=== PATIENT | female | born 2000 | race Two or more races ===

== ENCOUNTER 2024-06-05 09:00 | Outpatient (CLI) | payer OTHER | END 2024-06-05 10:00 | disposition home or self-care (01) | LOC: PPH VACUNA 09:00 | PROVIDERS: ATTEND Emergency Medicine Pediatric Emergency Medicine | DX: Z23 Encounter for immunization (principal) ==

== ENCOUNTER 2024-11-05 15:13 | Emergency (ER) | payer OTHER ==
[~2024-11-05] VITALS: Ht 162.6 cm; Wt 94.3 kg
[2024-11-05] MEDS ORDERED: VITATRUE COMBO1 EACH PO (15:23)
[2024-11-05] MEDS ORDERED: ACETAMINOPHEN500 M1 PO (17:39)
== END 2024-11-05 17:54 | disposition home or self-care (01) ==
LOC: ER 15:14
DX: G89.11 Acute pain due to trauma (principal); M54.2 Cervicalgia; M54.9 Dorsalgia, unspecified; Z3A.36 36 weeks gestation of pregnancy

== ENCOUNTER 2024-11-15 13:45 | Inpatient (IN) | payer OTHER ==
[~2024-11-15] VITALS: Ht 162.6 cm; Wt 95.3 kg
[~2024-11-15 13:45] MED LIST: ACETAMINOPHEN500 M1 PO; VITATRUE COMBO1 EACH PO
[2024-11-27 23:50] VITALS: BP 117/68
[2024-11-28 02:23] LABS: HEMATOCRIT 37.1 % (36.0-45.00); HEMOGLOBIN 12.1 g/dL (12.0-15.00); MEAN CELL VOLUME 79.9 fL (80.00-100.00); MEAN CORPUSCULAR HGB CONC 32.6 g/dl (32.0-36.0); PLATELET COUNT 204 K/uL (150-450); RED BLOOD COUNT 4.65 M/uL (4.00-6.00); RED CELL DISTRIBUTION WIDTH 15.1 % (11.5-14.5)
[2024-11-28 02:45] LABS: INR 0.96; PARTIAL THROMBOPLASTIN TIME 26.8 SECONDS (22.0-34.0); PROTHROMBIN TIME 10.5 SECONDS (9.0-11.5)
[2024-11-28] MEDS ORDERED: MORPHINE SULFATE 4 MG/ML VIAL IV SCH (04:00)
[2024-11-28 04:03] VITALS: BP 129/73
[2024-11-28] MEDS ORDERED: RINGERS SOLUTION,LACTATED 1,000 ML IV SCH (04:45)
[2024-11-28] MEDS ORDERED: OXYTOCIN 20 UNITS/1000ML RL PIGGYBAG IV ONE (05:40)
[2024-11-28] MEDS ORDERED: ERYTHROMYCIN BASE OPHT 1GM EACH TUBE OP ONE (05:40)
[2024-11-28] MEDS ORDERED: LIDOCAINE HCL 1% 10ML VIAL ONE (05:41)
[2024-11-28] MEDS ORDERED: CHLORHEXIDINE GLUCONATE 120 ML BOTTLE TOP ONE ×2 (05:41→06:15)
[2024-11-28] MEDS ORDERED: OXYTOCIN 1,000 ML IV SCH (06:15)
[2024-11-28 06:38] VITALS: BP 137/57
[2024-11-28 06:41] VITALS: BP 136/77
[2024-11-28] MEDS ORDERED: LIDOCAINE HCL 1% 20 ML VIAL IJ ONE (07:00)
[2024-11-28 07:40] VITALS: BP 136/68
[2024-11-28] MEDS ORDERED: OxyCODONE HCL 5 MG TABLET (ROXICODONE) PO SCH (08:00)
[2024-11-28] MEDS ORDERED: DOCUSATE SODIUM 100MG CAP PO ONE (08:54)
[2024-11-28] MEDS ORDERED: DOCUSATE SODIUM 100MG CAP PO SCH (09:00)
[2024-11-28 10:00] VITALS: BP 135/78
[2024-11-28 10:28] LABS: CREATININE SERUM 0.44 mg/dL (0.55-1.02); GFR 174.23
[2024-11-28 10:29] LABS: ALBUMIN 3.2 gm/dL (3.4-5.0); BILIRUBIN TOTAL 0.43 mg/dL (0.3-1.2); CALCIUM 9.4 mg/dL (8.5-10.1); GLOBULINA 4.3 G/DL (2.4-3.5); POTASSIUM 3.76 mEq/L (3.5-5.1); TOTAL PROTEIN 7.5 gm/dL (6.4-8.2)
[2024-11-28] MEDS ORDERED: KETOROLAC TROMETHAMINE 10 MG TABLET PO SCH (12:00)
[2024-11-28 16:21] VITALS: BP 120/80
[2024-11-29] VITALS: BP 106/67
[2024-11-29] MEDS ORDERED: MORPHINE SULFATE 4 MG/ML VIAL IV NR (04:00)
[2024-11-29 09:31] VITALS: BP 112/75
[2024-11-29 16:09] VITALS: BP 94/61
[2024-11-30 00:51] VITALS: BP 113/74
[2024-11-30 09:30] VITALS: BP 100/64
== END 2024-11-30 14:07 | disposition home or self-care (01) | DRG 807 ==
LOC: LDR 11-26 13:45 → OB/GYN 11-28 00:54 → LDR 11-28 00:54 → OB/GYN 11-28 07:53
PROVIDERS: ADMIT Obstetrics & Gynecology Maternal & Fetal Medicine; ATTEND Obstetrics & Gynecology Maternal & Fetal Medicine
PROC: 10E0XZZ Delivery of Products of Conception, External Approach (ICD-10-PCS; principal; 2024-11-28)
PROC: 0KQM0ZZ Repair Perineum Muscle, Open Approach (ICD-10-PCS; 2024-11-28)
PROC: 4A1HXCZ Monitoring of Products of Conception, Cardiac Rate, External Approach (ICD-10-PCS; 2024-11-28)
DX: O70.1 Second degree perineal laceration during delivery (principal); Z37.0 Single live birth; Z3A.40 40 weeks gestation of pregnancy

== ENCOUNTER 2024-11-19 09:30 | Outpatient (CLI) | payer OTHER | END 2024-11-19 10:19 | disposition home or self-care (01) | LOC: NST 09:30 | PROVIDERS: ATTEND Obstetrics & Gynecology | DX: Z34.83 Encounter for supervision of other normal pregnancy, third trimester (principal) ==

== ENCOUNTER 2024-11-26 11:37 | Outpatient (CLI) | payer OTHER | END 2024-11-26 13:02 | disposition home or self-care (01) | LOC: NST 11:37 | PROVIDERS: ATTEND Obstetrics & Gynecology | DX: Z34.83 Encounter for supervision of other normal pregnancy, third trimester (principal) ==